=== PATIENT | male | born 1955 | race Caucasian/White ===

== ENCOUNTER 2016-05-24 19:56 | Emergency (ER) | payer OTHER ==
[~2016-05-24] VITALS: Ht 170.2 cm; Wt 72.9 kg
[~2016-05-24 19:56] MED LIST: ATARAX,VISTARIL25 MG PO; KEFLEX500 MG PO; KENALOG,ARISTOC80 GM TP
[2016-05-24 21:36] LABS: ADD MIUA? YES; BILIRUBIN NEGATIVE; BLOOD LARGE; COLOR YELLOW ((YELLOW)); GLUCOSE (STRIP) NEGATIVE; KETONES NEGATIVE; LEUKOCYTES NEGATIVE; NITRITE NEGATIVE; PROTEIN (STRIP) NEGATIVE; UROBILINOGEN 0.2 MG/DL (0.2-1.0)
[2016-05-24 21:38] LABS: BACTERIA NONE SEEN /HPF; EPITHELIAL CELLS RARE /HPF; MUCUS 1+ /LPF; RED BLOOD CELLS 40-50 /HPF (0-5); UCUL ADDED? NO; WHITE BLOOD CELLS 0-5 /HPF (0-5)
[2016-05-24] MEDS ORDERED: CIPRO500 MG PO (21:43)
[2016-05-24 21:58] VITALS: BP 128/86
== END 2016-05-24 21:59 | disposition home or self-care (01) ==
LOC: EME 19:56
PROVIDERS: Physician Assistant
DX: R30.0 Dysuria (principal); R31.9 Hematuria, unspecified; R34 Anuria and oliguria
CPT/HCPCS: 81003; 99281; 99283

== ENCOUNTER 2017-02-24 09:59 | Emergency (ER) | payer OTHER ==
[~2017-02-24] VITALS: Ht 170.2 cm; Wt 72.1 kg
[~2017-02-24 09:59] MED LIST changes: +CIPRO500 MG PO
[2017-02-24 10:10] VITALS: BP 111/78
[2017-02-24] MEDS ORDERED: MOTRIN600 MG PO (12:17)
== END 2017-02-24 13:11 | disposition home or self-care (01) ==
LOC: EME 09:59
DX: M77.11 Lateral epicondylitis, right elbow (principal)
CPT/HCPCS: 99281; 99283

== ENCOUNTER 2017-07-01 19:21 | Emergency (ER) | payer OTHER ==
[~2017-07-01] VITALS: Ht 170.2 cm; Wt 69.3 kg
[~2017-07-01 19:21] MED LIST changes: +MOTRIN600 MG PO
[2017-07-01 20:05] LABS: HEMATOCRIT 46.3 % (38.0-50.0); MCH 31.1 PG (29.0-34.0); MCHC 34.6 G/DL (30.0-36.0); MCV 89.9 FL (86-99); PLATELET COUNT 196 K/uL (156-360); RBC DIS.WIDTH-CV 12.6 % (11.8-14.6); RBC DIS.WIDTH-SD 41.5 % (39-53); RED BLOOD COUNT 5.15 M/uL (4.00-5.50)
[2017-07-01 20:22] LABS: ALBUMIN 4.2 g/dL (3.2-4.8); CHLORIDE 104 mEq/L (99-109); POTASSIUM 4.2 mEq/L (3.7-5.4); SODIUM 138 mEq/L (136-147)
[2017-07-01 20:25] LABS: GLUCOSE 96 mg/dL (70-99)
[2017-07-01 20:27] LABS: TOTAL BILIRUBIN 0.6 mg/dL (0.0-1.0)
[2017-07-01 20:28] LABS: ALKALINE PHOSPHATASE 75 IU/L (3-129); CREATININE 1.1 mg/dL (0.6-1.3); GFR ESTIMATE (CALCULATED) > 59 mL/min/ (58.99-99999)
[2017-07-01 20:29] LABS: UREA NITROGEN (BUN) 18 mg/dL (9-23)
[2017-07-01 20:30] LABS: AST (GOT) 24 IU/L (2-34)
[2017-07-01 20:31] LABS: ALT (GPT) 30 IU/L (3-49)
[2017-07-01] MEDS ORDERED: FLAGYL500 MG PO (22:13)
[2017-07-01] MEDS ORDERED: CIPRO500 MG PO (22:13)
[2017-07-01 22:50] LABS: C DIFF TOXIN NEGATIVE (NEGATIVE)
[2017-07-01 22:54] LABS: APPEARANCE CLEAR ((CLEAR)); BILIRUBIN NEGATIVE; BLOOD NEGATIVE; COLOR YELLOW ((YELLOW)); GLUCOSE (STRIP) NEGATIVE; KETONES NEGATIVE; LEUKOCYTES NEGATIVE; NITRITE NEGATIVE; PROTEIN (STRIP) NEGATIVE; UCUL ADDED? NO; UROBILINOGEN 0.2 MG/DL (0.2-1.0)
[2017-07-01 22:56] LABS: SPECIFIC GRAVITY > 1.060 (1.000-1.030)
[2017-07-01 23:25] VITALS: BP 103/70
== END 2017-07-01 23:28 | disposition home or self-care (01) ==
LOC: EME 19:21
PROVIDERS: Physician Assistant
DX: K52.9 Noninfective gastroenteritis and colitis, unspecified (principal)
CPT/HCPCS: 74177; 80053; 81003; 83605; 85027; 87493; 87502; 87506; 99281; 99284; J7030